=== PATIENT | male | born 1965 | race Caucasian/White ===

== ENCOUNTER → 2016-07-24 | Outpatient (CLI) | payer BC ==
[~2016-07-24] MED LIST: ADVIN25/60 INH; ALBUAER2 INH; ATV/1 PO; FLUT1AER5 INH
== END | disposition home or self-care (01) ==
LOC: C.RDSM 10:22
PROVIDERS: ATTEND Physical Medicine & Rehabilitation
DX: M43.17 Spondylolisthesis, lumbosacral region (principal)

== ENCOUNTER → 2016-08-29 | Day surgery (SDC) | payer BC ==
[2016-08-12 11:06] VITALS: Ht 172.7 cm; Wt 73.6 kg
[~2016-08-29] VITALS: Ht 172.7 cm; Wt 73.6 kg
[~2016-08-29] MED LIST changes: +IOPAMIDOL INJ 61% 15 ML VIAL ONE; +LIDOCAINE HCL 1% MPF 5 ML VIAL ONE; +SODIUM CHLORIDE 0.9% INJ 10 ML VIAL ONE
--- NOTE | 2016-08-29 13:23 | History & Physical Bridge - [place] ---
H&P Re-Evaluation Bridge Note: I have examined the patient, reviewed the History & Physical and in the interval since the performance of the History & Physical I have noted the following changes of clinical significance: No changes noted
[2016-08-29 13:50] VITALS: TEMP 36.6
--- NOTE | 2016-08-29 13:56 | Discharge Instructions ---
Discharge Instructions Date of Service August 29, 2016. Visit Reason for Visit: Lumbosacral Spondylolisthesis Discharge Discharge Diagnosis / Problem: bilateral buttocks pain Discharge Goals Goal(s): Decrease discomfort, Improve function Activity Recommendations Activity Limitations: resume your previous activity Anesthesia . Post Anesthesia Instructions: If you have had General Anesthesia or IV Sedation: * Do not drive today. * Resume driving when surgeon permits. * Do not make important decisions or sign legal documents today. * Call surgeon for: 1. Temperature elevations greater than 101 degrees F. 2. Uncontrollable pain. 3. Excessive bleeding. 4. Persistent nausea and vomiting. 5. Medication intolerance (nausea, vomiting or rash). * For nausea and vomiting use only clear liquids such as: tea, soda, bouillon until nausea subsides, then gradually increase diet as tolerated. * If you have any concerns or questions, call your surgeon's office. If physician is unavailable and it is an emergency, call 911 or go to the nearest emergency room. . Diet Recommendations Recommended Home Diet: resume previous diet Procedures Procedures Performed: Lumbar Epidural Steroid Injection Pending Studies Studies pending at discharge: no Medical Emergencies . Who to Call and When: Medical Emergencies: If at any time you feel your situation is an emergency, please call 911 immediately. . Non-Emergent Contact Non-Emergency issues call your: Specialist . . "Provider Documentation" section prepared by Fuentes Pisano. .
[2016-08-29 14:00] VITALS: BP 117/77; PULSE 68; O2SAT 95
--- NOTE | 2016-08-29 16:28 | OPERATIVE REPORT ---
DATE OF OPERATION: 08/29/2016 PREOPERATIVE DIAGNOSIS: Grade 2 L4-L5 spondylolisthesis with right greater than left lower extremity radiculopathy. POSTOPERATIVE DIAGNOSIS: Same. PROCEDURE: Right paramedian L5-S1 intralaminar epidural steroid injection under fluoroscopic guidance. INDICATIONS: The patient is a 51-year-old white male who underwent injections back in 2014 with some success. He is describing radicular pain and proceeding today for a lumbar epidural steroid injection to try to relieve his discomfort as he has not responded to conservative measures including core exercise program. PHYSICAL EXAMINATION: Pleasant male seated comfortably. There is some tenderness across the lower L4-L5 region, sciatic notch sensitivity, has limitations with forward flexion and extension. He had no focal weakness to the lower extremities. CONSENT: Verbal and written consent was obtained from the patient. Risks and benefits were reviewed. Risks include but are not limited to epidural abscess, epidural hematoma, allergic reaction, dural puncture. The patient wishes to proceed. PROCEDURE: The patient was taken back to the special procedures room of the [facility], maintained in a prone position. Backside was cleansed with Betadine x3 and a dry sterile dressing was applied. Fluoroscope was used to identify the L5-S1 intralaminar space and overlying skin was anesthetized on the right side with 4 mL of lidocaine 1% with a 25-gauge 1-1/2-inch needle with a total of 4 mL of lidocaine 1%. A 22-gauge 3-1/2 inch Tuohy needle was then directed down toward the intralaminar space. It was advanced under lateral fluoroscopic guidance. Loss of resistance was noted of a distance just below 5 cm. Isovue-300 contrast 1 mL was injected which demonstrated epidural uptake pattern which was confirmed with both AP and lateral views. He then underwent injection after negative aspiration of 40 mg of Depo-Medrol and 4 mL of preservative-free sodium chloride. Injection was well tolerated. DISPOSITION: 1. The patient was taken out into the discharge recovery area where he will be discharged home once discharge criteria have been met. 2. Follow up in the [facility] office in 2-4 weeks. I attest to the content of the Intraoperative Record and any orders documented therein. Any exceptio ns are noted below.
== END | disposition home or self-care (01) ==
LOC: X.SURG 12:45
PROVIDERS: ATTEND Physical Medicine & Rehabilitation
DX: M43.16 Spondylolisthesis, lumbar region (principal)

== ENCOUNTER → 2016-11-13 | Day surgery (SDC) | payer BC ==
[2016-10-25 09:33] VITALS: Ht 172.7 cm; Wt 73.6 kg
[~2016-11-13] VITALS: Ht 172.7 cm; Wt 73.6 kg
[~2016-11-13] MED LIST changes: -FLUT1AER5 INH
[2016-11-13 13:26] VITALS: BP 109/75; PULSE 64; TEMP 36.5; O2SAT 96
--- NOTE | 2016-11-13 13:28 | Discharge Instructions ---
Discharge Instructions Date of Service Nov 13, 2016. Visit Reason for Visit: Lumbosacral Spondylolisthesis Discharge Discharge Diagnosis / Problem: low back pain Discharge Goals Goal(s): Decrease discomfort, Improve function Medications Stopped Medications Name(s): No ASA or NSAIDS x 3 days. Activity Recommendations Activity Limitations: resume your previous activity Anesthesia . Post Anesthesia Instructions: If you have had General Anesthesia or IV Sedation: * Do not drive today. * Resume driving when surgeon permits. * Do not make important decisions or sign legal documents today. * Call surgeon for: 1. Temperature elevations greater than 101 degrees F. 2. Uncontrollable pain. 3. Excessive bleeding. 4. Persistent nausea and vomiting. 5. Medication intolerance (nausea, vomiting or rash). * For nausea and vomiting use only clear liquids such as: tea, soda, bouillon until nausea subsides, then gradually increase diet as tolerated. * If you have any concerns or questions, call your surgeon's office. If physician is unavailable and it is an emergency, call 911 or go to the nearest emergency room. . Diet Recommendations Recommended Home Diet: resume previous diet Procedures Procedures Performed: LUMBAR EPIDURAL STEROID INJECTION Pending Studies Studies pending at discharge: no Medical Emergencies . Who to Call and When: Medical Emergencies: If at any time you feel your situation is an emergency, please call 911 immediately. . Non-Emergent Contact Non-Emergency issues call your: Specialist . . "Provider Documentation" section prepared by Fuentes Pisano. .
--- NOTE | 2016-11-13 13:50 | OPERATIVE REPORT ---
DATE OF OPERATION: 11/13/2016 PREOPERATIVE DIAGNOSIS: Grade-2 L4-L5 spondylolisthesis with proximal radiculopathy. POSTOPERATIVE DIAGNOSIS: Same. PROCEDURE: Left paramedian L4-L5 interlaminar epidural steroid injection under fluoroscopic guidance. INDICATIONS: The patient is a 51-year-old white male who presents today for an epidural injection. He recently had an injection and presents today to stack the effects as he has gotten 40% overall improvement to try to provide him with additional improvement. PHYSICAL EXAMINATION: Pleasant male seated comfortably. No issues with forward flexion or extension. He has no tenderness to palpation of his lumbar paraspinal muscles and he has normal lower extremity strength without any focal weakness. CONSENT: Verbal and written consent was obtained from the patient. Risks and benefits were reviewed. Risks include, but are not limited to epidural abscess, epidural hematoma, allergic reaction, and dural puncture. The patient wishes to proceed. DESCRIPTION OF PROCEDURE: The patient was taken back to the special procedures room of the [facility], where he was maintained in a prone position. Backside was cleansed with Betadine x3 and a dry sterile dressing was applied. Fluoroscope was used to identify the L4-L5 interlaminar space. Overlying skin on the left side was anesthetized with 4 mL of lidocaine 1%, 25-gauge 1-1/2 inch needle. A 22-gauge 3-1/2 inch Tuohy needle was then directed down towards the intralaminar space. It was advanced under lateral fluoroscopic guidance and loss of resistance was noted at a depth of 5 cm. Isovue-300 contrast 1 mL was injected, in which demonstrated epidural uptake pattern. This was confirmed with both AP and lateral views. He then underwent injection after negative aspiration of 40 mg of Depo-Medrol and 4 mL of preservative free sodium chloride. Injection reproduced a transient radicular sensation down the leg. DISPOSITION: 1. The patient was taken out into the discharge recovery area, where he will be discharged home once discharge criteria have been met. 2. Follow up in the [facility] office in 2-4 weeks. I attest to the content of the Intraoperative Record and any orders documented therein. Any exception s are noted below.
== END | disposition home or self-care (01) ==
LOC: X.SURG 12:17
PROVIDERS: ATTEND Physical Medicine & Rehabilitation
DX: M43.17 Spondylolisthesis, lumbosacral region (principal); M54.17 Radiculopathy, lumbosacral region